=== PATIENT | male | born 1985 | race Two or more races ===

== ENCOUNTER 2025-01-13 07:53 | Emergency (ER) | payer SELFPAY ==
[~2025-01-13] VITALS: Ht 182.9 cm; Wt 81.6 kg
[2025-01-13 08:14] LABS: PLATELET COUNT (AUTO) 200 K/uL (150-450); RED BLOOD CELL COUNT(AUTO) 5.41 MIL/uL (4.5-6.0); RED CELL DISTRIBUTION WIDTH 13.7 % (11.5-15.0); WHITE BLOOD COUNT (AUTO) 4.4 K/uL (4.3-11.0)
[2025-01-13 08:17] LABS: APPEARANCE,URINE CLEAR (CLEAR); BLOOD, URINE NEGATIVE Ery/uL (NEGATIVE); LEUKOCYTE ESTERASE ,URINE NEGATIVE (NEGATIVE); NITRITE, URINE NEGATIVE (NEGATIVE); UGLUCOSE NEGATIVE (NEGATIVE)
[2025-01-13 08:22] LABS: CALCIUM, SERUM 9.0 mg/dL (8.5-10.1); CREATININE 1.1 mg/dL (0.6-1.3); SODIUM SERUM 140.0 mmol/L (136-145); UREA NITROGEN, BLOOD 12.0 mg/dL (7-18)
[2025-01-13 08:27] LABS: ASPARTATE AMINOTRANSFERASE 21.0 U/L (15-37); TOTAL PROTEIN, SERUM 7.6 g/dL (6.4-8.2)
[2025-01-13 08:35] LABS: AMPHETAMINE, URINE NEGATIVE (NEGATIVE); BARBITURATE, URINE NEGATIVE (NEGATIVE); BENZODIAZEPINE, URINE NEGATIVE (NEGATIVE); CANNABINOID, URINE NEGATIVE (NEGATIVE); COCCAINE, URINE NEGATIVE (NEGATIVE); OPIATE, URINE NEGATIVE (NEGATIVE)
[2025-01-13] MEDS ORDERED: ONDANSETRON HCL/PF 4 MG/2 ML VIAL ONE (08:35)
[2025-01-13] MEDS ORDERED: MORPHINE SULFATE INJ 4 MG/ML DISP.SYRIN ONE (08:35)
[2025-01-13] MEDS ORDERED: MAG HYDROX/AL HYDROX/SIMETH 30 ML UDC ONE (08:35)
[2025-01-13] MEDS ORDERED: LIDOCAINE VISCOUS 2% UD 15 ML UDC ONE (08:35)
[2025-01-13] MEDS ORDERED: FAMOTIDINE/PF INJ 20 MG/2 ML VIAL IV ONE (08:36)
[2025-01-13] MEDS: IV NS 0.9% 1,000 ML BAG IV ONE (08:37)
[2025-01-13 08:39] LABS: INR 1.14 (0.91-1.10)
[2025-01-13] MEDS: MAG HYDROX/AL HYDROX/SIMETH 30 ML UDC PO ONE (08:54)
[2025-01-13] MEDS: LIDOCAINE VISCOUS 2% UD 15 ML UDC MM ONE (08:55)
[2025-01-13] MEDS: FAMOTIDINE/PF INJ 20 MG/2 ML VIAL IV ONE (08:55)
[2025-01-13] MEDS: MORPHINE SULFATE INJ 2 MG/ML DISP.SYRIN IV ONE (08:55)
[2025-01-13] MEDS: ONDANSETRON HCL/PF 4 MG/2 ML VIAL IV ONE (08:55)
[2025-01-13] MEDS ORDERED: CYCL5TAB PO (10:08)
[2025-01-13] MEDS ORDERED: LIDO30AD10 TP (10:08)
[2025-01-13] MEDS ORDERED: IBUP-1955 PO (10:08)
[2025-01-13 10:17] VITALS: BP 138/60; TEMP 98.8; O2SAT 99
== END 2025-01-13 10:17 | disposition home or self-care (01) ==
LOC: ER 07:57
DX: S39.011A Strain of muscle, fascia and tendon of abdomen, initial encounter (principal); Z79.899 Other long term (current) drug therapy; X50.0XXA Overexertion from strenuous movement or load, initial encounter; Y93.89 Activity, other specified; Y92.89 Other specified places as the place of occurrence of the external cause; Y99.0 Civilian activity done for income or pay
CPT/HCPCS: 99285; 96374; 96361; 96375; 76705; 74176; 85025; 80048; 83690; 80076; 85610; 81003; 36415; 86850; 80320; 80307; J2270; J1308; J2405; J7030; A4223; G0480